=== PATIENT | female | born 1995 | race American Indian/Alaskan Native ===

== ENCOUNTER 2021-04-16 21:10 | Outpatient (CLI) | payer MEDICAID ==
[2021-04-16] MEDS ORDERED: LACTATED RINGERS 500 ML IV ONE (21:33)
[2021-04-16 21:49] VITALS: BP 125/70
[2021-04-16] MEDS ORDERED: ACETAMINOPHEN 500 MG TAB PO ONE (22:47)
[2021-04-16 22:50] LABS: Bacteria,Urine 1+ /HPF (Negative); Bilirubin,Urine NEG (Negative); Blood,Urine NEG (Negative); Color,Urine Yellow (Yellow); Protein,Urine <15 mg/dL mg/dL (Negative); Urobilinogen,Urine < 2.0 mg/dL (<2.0)
== END 2021-04-16 23:46 | disposition short-term general hospital (02) ==
LOC: TRG 21:10 → APU 21:11 → TRG 23:46
PROVIDERS: ATTEND Student in an Organized Health Care Education/Training Program
DX: O26.892 Other specified pregnancy related conditions, second trimester (principal); Z3A.25 25 weeks gestation of pregnancy
CPT/HCPCS: 81001; 87086

== ENCOUNTER 2021-04-20 19:27 | Outpatient (CLI) | payer MEDICAID ==
[2021-04-20 20:55] VITALS: BP 124/63
[2021-04-20 21:51] LABS: Bacteria,Urine 1+ /HPF (Negative); Bilirubin,Urine NEG (Negative); Blood,Urine NEG (Negative); Color,Urine Yellow (Yellow); Mucus,Urine FEW /HPF; Protein,Urine <15 mg/dL mg/dL (Negative)
== END 2021-04-20 22:15 | disposition home or self-care (01) ==
LOC: TRG 19:27 → APU 19:28 → TRG 22:15
PROVIDERS: ATTEND Obstetrics & Gynecology
DX: Z34.92 Encounter for supervision of normal pregnancy, unspecified, second trimester (principal); Z3A.26 26 weeks gestation of pregnancy
CPT/HCPCS: 81001; 87086